=== PATIENT | female | born 1980 | race Caucasian/White ===

== ENCOUNTER 2018-07-15 09:18 | Inpatient (IN) | payer OTHER ==
[~2018-07-15] VITALS: Ht 170.2 cm; Wt 129.7 kg
[2018-07-15] MEDS ORDERED: ALPR0.5T PO (12:29)
[2018-07-15] MEDS ORDERED: SERT100T PO (12:29)
[2018-07-15 12:46] VITALS: BP_SYST 132
[2018-07-15] MEDS ORDERED: ALPRAZolam 0.25 MG TABLET PO PRN (13:15)
[2018-07-15] MEDS ORDERED: MORPHINE 4 MG/ML INJ. SYRINGE IVP PRN (13:15)
[2018-07-15] MEDS ORDERED: ONDANSETRON HCL 4 MG/2 ML VIAL IVP PRN (13:15)
[2018-07-15] MEDS ORDERED: SERTRALINE HCL 50 MG TABLET PO ONE (13:30)
[2018-07-15] MEDS: D5NS 1,000 ML IV SCH (13:32)
[2018-07-15 16:51] VITALS: BP_SYST 123
[2018-07-15 20:00] VITALS: BP_SYST 139
[2018-07-15] MEDS: cefTRIAXone 1 GM IVPB PREMIX 50 ML IV SCH (21:27)
[2018-07-15] MEDS: metroNIDAZOLE 500 mg/NS 100 ML IV SCH (22:20)
[2018-07-16 00:52] VITALS: BP_SYST 140
[2018-07-16 02:04] LABS: BILIRUBIN,URINE NEGATIVE (NEGATIVE); BLOOD, URINE NEGATIVE (NEGATIVE); CLARITY/URINE CLEAR (CLEAR); COLOR,URINE YELLOW (YELLOW); GLUCOSE,URINE NEGATIVE (NEGATIVE); KETONES,URINE NEGATIVE (NEGATIVE); LEUKOCYTE ESTERASE ,URINE 3+ (NEGATIVE); NITRITE, URINE NEGATIVE (NEGATIVE); PH,URINE 5.5 (5.0-8.0); PROTEIN URINE NEGATIVE (NEGATIVE); UROBILINOGEN,URINE 0.2 (0.2-1.0)
[2018-07-16 02:14] LABS: BACTERIA,URINE MODERATE /HPF (None Seen); RBC,URINE 0-3 /HPF (0-3); WBC,URINE 50-80 /HPF (0-3)
[2018-07-16] MEDS: D5NS 1,000 ML IV SCH ×2 (05:24→15:55)
[2018-07-16] MEDS: metroNIDAZOLE 500 mg/NS 100 ML IV SCH ×3 (05:24→22:15)
[2018-07-16 06:39] LABS: BASOPHILS % (AUTO) 0.8 % (0.0-2.0); EOSINOPHILS # (AUTO) 0.3 K/uL (0.0-0.4); EOSINOPHILS % (AUTO) 5.5 % (0.0-4.0); HEMATOCRIT 36.2 % (36-48); HEMOGLOBIN 11.9 g/dL (12.0-16.0); LYMPHOCYTES # (AUTO) 1.7 K/uL (1.0-5.5); LYMPHOCYTES % (AUTO) 31.6 % (20.5-51.5); MEAN CORPUSCULAR HEMOGLOBIN 27 pg (27-31); MEAN CORPUSCULAR HGB CONC 33 % (32-36); MEAN CORPUSCULAR VOLUME 81 fL (79.0-98.0); MONOCYTES # (AUTO) 0.4 K/uL (0.0-1.0); MONOCYTES % (AUTO) 6.7 % (1.7-9.3); NEUTROPHILS % (AUTO) 55.4 % (40.0-70.0); PLATELET COUNT (AUTO) 204 K/uL (130-430); RED BLOOD CELL COUNT(AUTO) 4.49 MIL/uL (4.2-6.2); RED CELL DISTRIBUTION WIDTH 14.3 % (9.0-15.0); WHITE BLOOD COUNT (AUTO) 5.5 K/uL (4.8-10.8)
[2018-07-16 07:01] LABS: CALCIUM 8.1 mg/dL (8.4-11.0); CREATININE 0.73 mg/dL (0.55-1.30); POTASSIUM 3.5 mmol/L (3.5-5.1)
[2018-07-16 07:07] LABS: PROTHROMBIN TIME 10.4 SECS (9.5-12.5)
[2018-07-16 07:16] LABS: ALBUMIN 3.1 g/dL (3.4-4.8); TOTAL BILIRUBIN 0.6 mg/dL (0.0-1.0)
[2018-07-16 07:39] LABS: HCG,QUAL RESULT NEGATIVE (NEGATIVE)
[2018-07-16] MEDS: SERTRALINE HCL 50 MG TABLET PO SCH (08:30)
[2018-07-16 08:42] VITALS: BP_SYST 140
[2018-07-16 12:43] VITALS: BP_SYST 139
[2018-07-16 16:20] VITALS: BP_SYST 129
[2018-07-16] MEDS ORDERED: KETOROLAC TROMETHAMINE 30 MG VIAL IVP PRN (16:30)
[2018-07-16] MEDS ORDERED: ONDANSETRON HCL 4 MG/2 ML VIAL IVP PRN (16:30)
[2018-07-16] MEDS ORDERED: fentaNYL CITRATE/PF 100 MCG/2 ML AMP IVP PRN ×2 (16:30)
[2018-07-16] MEDS ORDERED: LR 1,000 ML IV.SOLN IV ONE (19:05)
[2018-07-16] MEDS ORDERED: NEOSTIGMINE METHYLSULFATE 1 MG/ML, 10 ML VIAL ONE (19:05)
[2018-07-16] MEDS ORDERED: NS IRRIG SOLN 1000 ML IR ONE (19:05)
[2018-07-16] MEDS ORDERED: EPINEPHrine 1 MG/ML AMP ONE (19:05)
[2018-07-16] MEDS ORDERED: GLYCOPYRROLATE 0.2 MG/ML VIAL ONE (19:05)
[2018-07-16] MEDS ORDERED: ROCURONIUM BROMIDE 10 MG/ML (ZEMURON) ONE (19:05)
[2018-07-16] MEDS ORDERED: BUPIVACAINE /EPINEPHRINE/PF 0.5% 30 ML VIAL INJ ONE (19:05)
[2018-07-16] MEDS ORDERED: SEVOFLURANE 15 MIN GAS INH ONE (19:05)
[2018-07-16] MEDS ORDERED: MIDAZOLAM HCL 5 MG/ML VIAL (VERSED) IV ONE (19:05)
[2018-07-16] MEDS: fentaNYL CITRATE/PF 100 MCG/2 ML AMP ONE ×2 (19:05→19:25)
[2018-07-16] MEDS ORDERED: KETOROLAC TROMETHAMINE 30 MG VIAL ONE (19:05)
[2018-07-16] MEDS ORDERED: PROPOFOL 200MG/ 20ML VIAL (DIPRIVAN) IV ONE (19:05)
[2018-07-16] MEDS ORDERED: fentaNYL CITRATE/PF 100 MCG/2 ML AMP ONE (19:05)
[2018-07-16] MEDS ORDERED: ALPRAZolam 0.25 MG TABLET PO PRN (19:15)
[2018-07-16 20:08] VITALS: BP_SYST 139
[2018-07-16] MEDS: cefTRIAXone 1 GM IVPB PREMIX 50 ML IV SCH (20:31)
[2018-07-16] MEDS: MORPHINE 2 MG/ML INJ. SYRINGE IVP PRN (21:40)
[2018-07-16 23:00] VITALS: BP_SYST 127
[2018-07-17] MEDS: metroNIDAZOLE 500 mg/NS 100 ML IV SCH ×2 (05:38→13:21)
[2018-07-17] MEDS: D5NS 1,000 ML IV SCH (05:40)
[2018-07-17] MEDS ORDERED: SIMETHICONE 80 MG TAB.CHEW PO PRN (06:00)
[2018-07-17] MEDS: MORPHINE 2 MG/ML INJ. SYRINGE IVP PRN (06:18)
[2018-07-17 07:39] LABS: ALBUMIN 3.2 g/dL (3.4-4.8); CALCIUM 8.5 mg/dL (8.4-11.0); CREATININE 0.62 mg/dL (0.55-1.30); POTASSIUM 3.7 mmol/L (3.5-5.1); TOTAL BILIRUBIN 0.5 mg/dL (0.0-1.0)
[2018-07-17 08:30] VITALS: BP_SYST 139
[2018-07-17] MEDS: SERTRALINE HCL 50 MG TABLET PO SCH (09:28)
[2018-07-17] MEDS ORDERED: IBUPROFEN 800 MG TABLET PO PRN (09:45)
[2018-07-17] MEDS ORDERED: HYDROcodone/ACETAMIN 5-325 MG TAB (NORCO/ VICODIN) PO PRN (10:15)
[2018-07-17 12:11] VITALS: BP_SYST 151
[2018-07-17 13:39] VITALS: BP_SYST 132
== END 2018-07-17 15:48 | disposition home or self-care (01) | DRG 418 ==
LOC: SMU 12:19
PROVIDERS: ADMIT Internal Medicine Hospice and Palliative Medicine; ATTEND Internal Medicine Hospice and Palliative Medicine
PROC: 0FT44ZZ Resection of Gallbladder, Percutaneous Endoscopic Approach (ICD-10-PCS; principal; 2018-07-16 16:00)
DX: K80.00 Calculus of gallbladder with acute cholecystitis without obstruction (principal); Z68.41 Body mass index [BMI] 40.0-44.9, adult; E66.01 Morbid (severe) obesity due to excess calories; K66.0 Peritoneal adhesions (postprocedural) (postinfection)
CPT/HCPCS: 36415; 80053; 81000-TC; 84703; 85025; 85610-TC; 85730-TC; 86886; 86900; 86901; 87081; 87086; 88304; 94010; 94640; C1727; J0171; J0696; J1885; J2250; J2270; J2405; J2704; J2710; J3010; J3490; J7042; J7120